=== PATIENT | male | born 1965 | race African-American/Black ===

== ENCOUNTER 2023-12-23 19:09 | Emergency (ER) | payer OTHER ==
[2023-12-23] MEDS ORDERED: IBUPROFEN 600 MG TABLET (FP) PO ONE (19:21)
[2023-12-23] MEDS ORDERED: DIPHTH,PERTUSS(ACELL),TET 0.5 ML DISP.SYRIN IM ONE (19:21)
[2023-12-23] MEDS: DIPHTH,PERTUSS(ACELL),TET 0.5 ML DISP.SYRIN IM ONE (19:21)
[2023-12-23] MEDS: IBUPROFEN 600 MG TABLET (FP) PO ONE (19:25)
[2023-12-23 19:37] VITALS: RESP 18; BMI 31.9
[2023-12-23] MEDS ORDERED: PIPERACILLIN/TAZOB 3.375 GM 3.375 GM in DEXTROSE 5%-WATER - 50 ML IVPB ONE (19:43)
[2023-12-23] MEDS: CEFAZOLIN 3 GM in DEXTROSE 5%-WATER - 100 ML IVPB ONE (20:32)
[2023-12-23] MEDS ORDERED: morphine SULFATE 4 MG/ML VIAL ONE (21:45)
[2023-12-23] MEDS: morphine CARPU-JECT 4 MG/1 ML DISP.SYRIN IVPUSH ONE (21:51)
[2023-12-24 02:45] VITALS: BP 143/90; PULSE 57; TEMP 97.8
== END 2023-12-24 00:37 | disposition short-term general hospital (02) ==
LOC: FER 19:09
PROC: 3E03329 Introduction of Other Anti-infective into Peripheral Vein, Percutaneous Approach (ICD-10-PCS; principal; 2023-12-23)
PROC: 3E033GC Introduction of Other Therapeutic Substance into Peripheral Vein, Percutaneous Approach (ICD-10-PCS; 2023-12-23)
PROC: 3E0234Z Introduction of Serum, Toxoid and Vaccine into Muscle, Percutaneous Approach (ICD-10-PCS; 2023-12-23)
DX: S62.650B Nondisplaced fracture of middle phalanx of right index finger, initial encounter for open fracture (principal); W29.3XXA Contact with powered garden and outdoor hand tools and machinery, initial encounter; Y93.89 Activity, other specified; Y92.009 Unspecified place in unspecified non-institutional (private) residence as the place of occurrence of the external cause
CPT/HCPCS: 73140-TC-RT-FY; 90715; 99285-25